=== PATIENT | female | born 1940 | race African-American/Black ===

== ENCOUNTER 2024-02-21 01:37 | Inpatient (IN) | payer OTHER ==
[~2024-02-21] VITALS: Ht 165.1 cm; Wt 78.9 kg
[~2024-02-21 01:37] MED LIST: ATOR10TA69 PO; BENA20TA77 PO; CARI350T28 PO; DIAZ-570 PO; EZET10TA81 PO; LANS30CA52 PO; POTA10CA83 PO
[2024-02-21 02:17] LABS: BASOPHILS % 0.3 % (0.0-2.0); EOSINOPHILS % 0.8 % (0.0-5.0); HEMATOCRIT. 36.2 % (36.0-48.0); HEMOGLOBIN. 11.3 g/dL (12.0-16.0); LYMPHOCYTES % 8.9 % (20.0-50.0); MEAN CORPUSCULAR HEMOGLOBIN 27.6 pg (28.0-32.0); MEAN CORPUSCULAR HGB CONC 31.1 g/dL (31.0-37.0); MEAN CORPUSCULAR VOLUME 88.5 fL (81.0-99.0); MEAN PLATELET VOLUME 8.3 fl (7.4-10.4); MONOCYTES % 9.5 % (2.0-8.0); NEUTROPHILS % 80.5 % (40.0-76.0); PLATELET 256 x1000/uL (130-400); RED BLOOD CELL COUNT 4.09 mill/uL (4.2-5.4); RED CELL DISTRIBUTION WIDTH 18.4 % (11.6-14.6); WHITE BLOOD COUNT 13.9 x1000/uL (4.5-11.0)
[2024-02-21 02:23] LABS: CHLORIDE 109 mEq/L (98-107); POTASSIUM 3.3 mEq/L (3.5-5.1); SODIUM 140 mEq/L (136-145)
[2024-02-21 02:24] LABS: CARBON DIOXIDE 18 mEq/L (21-32)
[2024-02-21] MEDS: AMIODARONE HCL 50MG/ML 3ML VIAL IV ONE (02:27)
[2024-02-21 02:29] LABS: CREATININE 1.1 mg/dL (0.6-1.0); GLUCOSE 110 mg/dL (70-105)
[2024-02-21 02:30] LABS: UREA NITROGEN BLOOD 12 mg/dL (9-23)
[2024-02-21 02:31] LABS: TROPONIN I HIGH SENSITIVITY 29 ng/L (3.0-34)
[2024-02-21 07:19] LABS: PHOSPHORUS 1.8 mg/dL (2.5-4.9)
[2024-02-21] MEDS: POTASSIUM CHLORIDE 20MEQ/PACKET PO NR (07:24)
[2024-02-21] MEDS ORDERED: ONDANSETRON HCL 4MG/2ML INJ IV PRN (08:30)
[2024-02-21] MEDS: MAGNESIUM 2 G PREMIX 50 ML IV ONE (09:07)
[2024-02-21] MEDS: MAGNESIUM 2 G PREMIX 50 ML IV SCH (09:46)
[2024-02-21] MEDS: POTASSIUM PHOSPHATE 20 MMOL in DEXT 5% WATER 243.3333 ML IV SCH (10:40)
[2024-02-21] MEDS ORDERED: DILTIAZEM HCL 5MG/ML 5ML VIAL IV PRN (11:45)
[2024-02-21] MEDS ORDERED: DILT180C66 MT (12:39)
[2024-02-21] MEDS: DILTIAZEM HCL 60MG TABLET PO SCH (14:27)
[2024-02-21 16:00] VITALS: BP 160/57; PULSE 82; RESP 20; TEMP 97
[2024-02-21] MEDS: HYDRALAZINE HCL 50MG TABLET PO SCH (16:56)
[2024-02-21] MEDS ORDERED: HYDRALAZINE HCL 50MG TABLET PO SCH (17:00)
[2024-02-21 17:12] VITALS: BP 169/62; PULSE 82; RESP 18; TEMP 98.1
[2024-02-21 20:00] VITALS: BP 124/62; PULSE 88; RESP 18; TEMP 97
[2024-02-22] VITALS: BP 134/56; PULSE 82; RESP 18; TEMP 97.2
[2024-02-22 04:00] VITALS: BP 162/65; PULSE 79; RESP 18; TEMP 97.2
[2024-02-22 06:01] LABS: CARBON DIOXIDE 22 mEq/L (21-32); CHLORIDE 111 mEq/L (98-107); POTASSIUM 3.7 mEq/L (3.5-5.1); SODIUM 141 mEq/L (136-145)
[2024-02-22 06:03] LABS: CALCIUM 8.3 mg/dL (8.7-10.4)
[2024-02-22 06:07] LABS: GLUCOSE 89 mg/dL (70-105); UREA NITROGEN BLOOD 15 mg/dL (9-23)
[2024-02-22 06:10] LABS: PHOSPHORUS 2.7 mg/dL (2.5-4.9)
[2024-02-22 06:20] LABS: BASOPHILS % 0.9 % (0.0-2.0); EOSINOPHILS % 3.6 % (0.0-5.0); HEMOGLOBIN. 9.3 g/dL (12.0-16.0); LYMPHOCYTES % 10.4 % (20.0-50.0); MEAN CORPUSCULAR HEMOGLOBIN 27.9 pg (28.0-32.0); MEAN CORPUSCULAR HGB CONC 33.3 g/dL (31.0-37.0); MEAN PLATELET VOLUME 8.4 fl (7.4-10.4); MONOCYTES % 12.4 % (2.0-8.0); NEUTROPHILS % 72.7 % (40.0-76.0); PLATELET 219 x1000/uL (130-400); RED BLOOD CELL COUNT 3.33 mill/uL (4.2-5.4); RED CELL DISTRIBUTION WIDTH 17.6 % (11.6-14.6); WHITE BLOOD COUNT 9.4 x1000/uL (4.5-11.0)
[2024-02-22 08:00] VITALS: BP 153/52; PULSE 80; RESP 18; TEMP 98.9
[2024-02-22] MEDS: ENOXAPARIN 80MG/0.8ML SYR SUBCUT SCH ×2 (09:49→21:49)
[2024-02-22] MEDS: NEBIVOLOL HCL 5 MG TABLET PO SCH (09:50)
[2024-02-22] MEDS: HYDROCHLOROTHIAZIDE 25MG TABLET PO SCH (09:50)
[2024-02-22 11:13] LABS: INR 1.2; PROTHROMBIN TIME 13.6 sec (9.6-11.0)
[2024-02-22 11:36] LABS: T4 FREE 1.52 ng/dL (0.89-1.76); THYROID STIMULATING HORMONE 1.72 uIU/mL (0.55-4.78)
[2024-02-22] MEDS: MAGNESIUM 2 G PREMIX 50 ML IV SCH (11:53)
[2024-02-22 12:00] VITALS: BP 155/58; PULSE 78; RESP 20; TEMP 97.6
[2024-02-22 16:00] VITALS: BP 152/59; PULSE 80; RESP 18; TEMP 98.8
[2024-02-22] MEDS: ACETAMINOPHEN 325MG TABLET PO PRN (18:10)
[2024-02-22 20:00] VITALS: BP 111/89; PULSE 73; RESP 18; TEMP 97.9
[2024-02-23] VITALS: BP 144/51; PULSE 73; RESP 18; TEMP 97.9
[2024-02-23 04:00] VITALS: BP 160/66; PULSE 69; RESP 18; TEMP 97.8
[2024-02-23 06:36] LABS: CARBON DIOXIDE 23 mEq/L (21-32); CHLORIDE 109 mEq/L (98-107); POTASSIUM 3.5 mEq/L (3.5-5.1); SODIUM 137 mEq/L (136-145)
[2024-02-23 06:37] LABS: CALCIUM 8.8 mg/dL (8.7-10.4)
[2024-02-23 06:41] LABS: CREATININE 1.1 mg/dL (0.6-1.0)
[2024-02-23 06:42] LABS: GLUCOSE 86 mg/dL (70-105); UREA NITROGEN BLOOD 16 mg/dL (9-23)
[2024-02-23 06:45] LABS: BASOPHILS % 0.8 % (0.0-2.0); EOSINOPHILS % 3.6 % (0.0-5.0); HEMATOCRIT. 32.1 % (36.0-48.0); HEMOGLOBIN. 10.7 g/dL (12.0-16.0); LYMPHOCYTES % 15.8 % (20.0-50.0); MEAN CORPUSCULAR HEMOGLOBIN 27.9 pg (28.0-32.0); MEAN CORPUSCULAR HGB CONC 33.4 g/dL (31.0-37.0); MEAN CORPUSCULAR VOLUME 83.6 fL (81.0-99.0); MEAN PLATELET VOLUME 8.7 fl (7.4-10.4); MONOCYTES % 13.2 % (2.0-8.0); NEUTROPHILS % 66.6 % (40.0-76.0); PLATELET 251 x1000/uL (130-400); RED BLOOD CELL COUNT 3.84 mill/uL (4.2-5.4); RED CELL DISTRIBUTION WIDTH 17.6 % (11.6-14.6); WHITE BLOOD COUNT 8.2 x1000/uL (4.5-11.0)
[2024-02-23 08:17] VITALS: BP 152/58; PULSE 76; RESP 20; TEMP 97.8
[2024-02-23 08:21] LABS: TROPONIN I HIGH SENSITIVITY 59 ng/L (3.0-34)
[2024-02-23 12:10] VITALS: BP 122/50; PULSE 76; RESP 20; TEMP 97.8
[2024-02-23] MEDS: HYDRALAZINE HCL 50MG TABLET PO SCH (14:33)
[2024-02-23] MEDS ORDERED: MAGNESIUM/ALUMINUM HYDROXIDE/SIMETHICONE 30ML UDC PO PRN (14:45)
[2024-02-23] MEDS: MAGNESIUM/ALUMINUM HYDROXIDE/SIMETHICONE 30ML UDC PO NR (15:11)
[2024-02-23 15:28] VITALS: BP 122/50; PULSE 76; TEMP 97.8; O2SAT 100
== END 2024-02-23 17:50 | disposition home or self-care (01) | DRG 309 ==
LOC: ER 01:37 → 6WST 02:22 → 5WST 09:23 → 8WST 15:32
PROVIDERS: ADMIT Internal Medicine; ATTEND Internal Medicine
DX: I48.91 Unspecified atrial fibrillation (principal); E87.1 Hypo-osmolality and hyponatremia; E87.20 Acidosis, unspecified; N13.30 Unspecified hydronephrosis; N17.9 Acute kidney failure, unspecified; E11.9 Type 2 diabetes mellitus without complications; E78.00 Pure hypercholesterolemia, unspecified; E83.39 Other disorders of phosphorus metabolism; E87.6 Hypokalemia; I10 Essential (primary) hypertension; I25.10 Atherosclerotic heart disease of native coronary artery without angina pectoris; I48.92 Unspecified atrial flutter; E83.42 Hypomagnesemia; J44.9 Chronic obstructive pulmonary disease, unspecified; R33.8 Other retention of urine; Z88.0 Allergy status to penicillin; Z99.2 Dependence on renal dialysis; Z88.8 Allergy status to other drugs, medicaments and biological substances; Z79.899 Other long term (current) drug therapy
CPT/HCPCS: 36415; 71045; 80048; 83735; 83880; 84100; 84439; 84443; 84484; 85025; 93005; 93306; 99291; J0282; J1650; J3475; J3490; J7060